=== PATIENT | female | born 1965 | race Caucasian/White ===

== ENCOUNTER 2017-06-15 18:21 | Emergency (ER) | payer MEDICAID ==
[2012-09-25 14:37] VITALS: BMI 20.1
[2017-06-15 18:45] LABS: BASOPHILS 0.3 % (0-2); EOSINOPHILS 3.3 % (0-7); HEMATOCRIT 39.5 % (36.0-48.0); HEMOGLOBIN 12.4 g/dL (12-16); IMMATURE GRANULOCYTES 0.1 % (0-5); LYMPHOCYTES 34.8 % (15-50); MCH 25.9 pg (26.0-34.0); MCHC 31.4 g/dL (31.0-37.0); MCV 82.6 fL (80.0-100.0); MONOCYTES 10.4 % (2-11); NEUTROPHILS 51.1 % (40-80); PLATELET COUNT 244 10x3/uL (130-400); RBC 4.78 10x6/uL (4.00-5.40); RDW 14.7 % (11.5-14.5); WBC 6.7 10x3/uL (4.8-10.8)
[2017-06-15 19:01] LABS: ALBUMIN 3.7 g/dL (3.4-5.0); ALKALINE PHOSPHATASE 191 U/L (46-116); ALT (SGPT) 57 U/L (10-68); BILIRUBIN - TOTAL 0.26 mg/dL (0.2-1.3); CALC OSMOLALITY 282 mosm/kg (275-300); CALCIUM 9.3 mg/dL (8.5-10.1); CARBON DIOXIDE 30.5 mmol/L (21.0-32.0); CHLORIDE - SERUM 104 mmol/L (98-107); CREATININE - SERUM 0.8 mg/dL (0.6-1.3); GLUCOSE 104 mg/dL (74-106); POTASSIUM - SERUM 3.9 mmol/L (3.5-5.1); PROTEIN - SERUM 7.8 g/dL (6.4-8.2); SODIUM 142 mmol/L (136-145); UREA NITROGEN 12 mg/dL (7-18); eGFR NON AFRICAN AMERICAN 79 mL/min (90-120)
== END 2017-06-15 20:46 | disposition home or self-care (01) ==
LOC: D.ER 18:21
PROVIDERS: Emergency Medicine
DX: T43.222A Poisoning by selective serotonin reuptake inhibitors, intentional self-harm, initial encounter (principal); T39.312A Poisoning by propionic acid derivatives, intentional self-harm, initial encounter; Y92.019 Unspecified place in single-family (private) house as the place of occurrence of the external cause; F33.9 Major depressive disorder, recurrent, unspecified

== ENCOUNTER 2018-04-13 19:00 | Outpatient (CLI) | payer OTHER ==
[2012-09-25 14:37] VITALS: BMI 20.1
== END 2018-04-13 23:59 | disposition home or self-care (01) ==
LOC: D.MAMMO 19:00
DX: Z12.31 Encounter for screening mammogram for malignant neoplasm of breast (principal)

== ENCOUNTER → 2018-07-04 13:29 | Outpatient (CLI) | payer OTHER ==
[2012-09-25 14:37] VITALS: BMI 20.1
== END | disposition home or self-care (01) ==
LOC: D.MRI 11:30
DX: M54.16 Radiculopathy, lumbar region (principal)

== ENCOUNTER 2018-08-10 06:30 | Day surgery (SDC) | payer OTHER ==
[2018-08-09 10:25] LABS: HEMATOCRIT 37.3 % (36.0-48.0); HEMOGLOBIN 11.4 g/dL (12-16); MCH 25.7 pg (26.0-34.0); MCHC 30.6 g/dL (31.0-37.0); RBC 4.44 10x6/uL (4.00-5.40); RDW 16.2 % (11.5-14.5); WBC 5.4 10x3/uL (4.8-10.8)
[~2018-08-10] VITALS: Ht 157.5 cm; Wt 68.2 kg
[~2018-08-10 06:30] MED LIST: BACLOFEN10 MG PO; BUPROPION HCL100 MG PO; EFFEXOR37.5 MG PO; MOBIC7.5 MG PO; NEURONTIN 300300 MG PO; NORCO 10-325 TA1 TAB PO; Omeprazole Dr 20 Mg; ZOFRAN4 MG PO
[2018-08-10 08:41] VITALS: BP 141/81; Ht 157.5 cm; Wt 68.2 kg
[2018-08-10] MEDS ORDERED: OXYCODONE-APAP1 TAB PO (11:22)
[2018-08-10] MEDS ORDERED: DURICEF500 MG PO (11:23)
--- NOTE | 2018-08-10 11:45 | NUR ---
PT AWAKENING, OPA REMOVED
--- NOTE | 2018-08-10 16:44 | OP ---
PATIENT NAME: GEETA IVERSON MEDICAL RECORD: [id number] :61 LOCATION:D.OPS ADMISSION DATE: SURGEON: KYMBERLY MCNEAL DO DATE OF OPERATION: 08/10/2018 PROCEDURE PERFORMED: Right endoscopic carpal tunnel release. PREOPERATIVE DIAGNOSIS: Right carpal tunnel syndrome. POSTOPERATIVE DIAGNOSIS: Right carpal tunnel syndrome. INDICATIONS: Ms. Iverson is a 53-year-old female, who presented to my office complaining of right hand numbness and tingling that would wake her up at night and when she is driving. She is tired of dealing with it. Had nerve conduction study that demonstrated carpal tunnel syndrome, median nerve compression. The patient was aware of the risks and benefits of having the procedure done, is tired of dealing with the pain and wanted it done. She is aware of the risks of infection, bleeding, damage to the median nerve, all the other nerves and vessels and signed the consent. SURGEON: Kymberly Mcneal DO DESCRIPTION OF PROCEDURE: The patient was taken to the operating suite and laid in supine position. Given general anesthetic, 2 grams of Ancef preoperatively. The right upper extremity was prepped and draped in sterile fashion. A time-out was performed. Everyone was in agreement with the correct side, site, patient, and procedure. Incision was then marked out over the palmaris longus tendon at the proximal wrist crease. The Esmarch was used to exsanguinate the right upper extremity. The tourniquet was inflated to 250 mmHg and was up for 8 minutes. Once tourniquet was inflated, the incision began with a 15 blade scalpel just through the skin and then blunt dissection was made with Ragnell down to the carpal tunnel itself. The fascia in the forearm covering the median nerve was then released from distal to proximal and then the carpal tunnel itself was entered with the dilators. Then, the sheath was entered into the carpal tunnel protecting the median nerve and the camera was entered viewing the transcarpal ligament. This was probed and rasped ensuring nothing was in the ligament. The blade was brought in and divided the transverse carpal ligament, had a good release of it and fat had herniated down into the carpal tunnel. This was all removed and then a Ragnell was used to hold the skin and the scissors were brought in to ensure there was complete release. There were no fibers of the transverse carpal ligament intact and there were not. This was done under loupe magnification. The tourniquet was then let down and 0.5% Marcaine with epinephrine was injected 10 mL around the site. The site was closed with 5-0 Monocryl in an inverted interrupted fashion. Steri-Strip was placed on the wound, Adaptic, 4 x 4's, Kerlix, and then Coban was lightly wrapped around the hand and wrist. The patient was awakened and taken to recovery in stable condition. ESTIMATED BLOOD LOSS: Minimal. COMPLICATIONS: None. TOURNIQUET TIME: 8 minutes. TRANSINT:[id number] Voice Confirmation ID: [id number] DOCUMENT ID: [id number] OPERATIVE REPORT [id number] GEETA IVERSON,KYMBERLY Santiago DO at 1644 CC: [id number] DICTATION DATE: 08/10/18 1127 [place]: 08/10/18 1327 [facility] 08/10/18 [facility] [address] [place] [address]
== END 2018-08-10 13:30 | disposition home or self-care (01) ==
LOC: D.OPS 06:30 → D.PAN 08:45 → D.OPS 09:30 → D.PAN 09:30 → D.OPS 12:45
PROVIDERS: Anesthesiology
DX: G56.01 Carpal tunnel syndrome, right upper limb (principal)

== ENCOUNTER 2018-09-27 05:10 | Day surgery (SDC) | payer OTHER ==
[~2018-09-27] VITALS: Ht 157.5 cm; Wt 68.5 kg
--- NOTE | ~2018-09-27 | OP ---
PATIENT NAME: GEETA RYAN MEDICAL RECORD: [id number] :61 LOCATION:D.OPS ADMISSION DATE: SURGEON: KIRK COLINDRES MD DATE OF OPERATION: 09/27/2018 PREOPERATIVE DIAGNOSIS: Lumbar spinal stenosis and foraminal stenosis L4-L5, left. POSTOPERATIVE DIAGNOSIS: Lumbar spinal stenosis and foraminal stenosis L4-L5, left. PROCEDURE: Lumbar laminotomy, medial facetectomy and foraminotomy L4-L5 left with METRx retractor. DESCRIPTION OF TECHNIQUE: After induction of general endotracheal anesthesia, the patient was rolled prone on a Lupillo frame. Lumbar spine was prepped and draped in usual sterile fashion. Fluoroscopic x-ray and spinal needle localized the L4-L5 interspace on the left side. After infiltration of 1:100,000 epinephrine and 1% lidocaine, a stab incision was created with a #11 blade. Series of dilators was used to advance the METRx retractor to the L4-L5 interspace on the left side. Level was confirmed with fluoroscopic x-ray. A microscope and Midas-Raf drill were used performed a laminotomy, medial facetectomy and foraminotomy at L4-L5 on the left. Hypertrophied ligamentum flavum was removed with Cloward rongeurs. Following this, the L4 and L5 nerve roots were decompressed well on the left side. Meticulous hemostasis was maintained throughout. The wound was irrigated with copious amounts of Ancef irrigant solution. The METRx retractor was removed. The fascia was closed with 2-0 Vicryl suture. Subdermal layer was closed with 3-0 Vicryl suture. The skin was closed with laurie. A sterile dressing was applied to the wound. The patient was awakened in good condition and taken to recovery. All counts were reported as correct. Estimated blood loss was minimal. TRANSINT:[id number] Voice Confirmation ID: [id number] DOCUMENT ID: [id number] KIRK COLINDRES MD CC: [id number] DICTATION DATE: 09/29/18 1041 PUBLIC SAFETY TELECOMMUNICATOR: 09/29/18 1205 [facility] 09/27/18 [place] [address]
[~2018-09-27 05:10] MED LIST changes: +DURICEF500 MG PO; +OXYCODONE-APAP1 TAB PO
[2018-09-27 05:29] LABS: HEMATOCRIT 38.4 % (36.0-48.0); HEMOGLOBIN 12.2 g/dL (12-16); MCH 26.6 pg (26.0-34.0); MCHC 31.8 g/dL (31.0-37.0); MCV 83.7 fL (80.0-100.0); MEAN PLATELET VOLUME 8.9 fL (7.4-10.4); RBC 4.59 10x6/uL (4.00-5.40); RDW 15.6 % (11.5-14.5); WBC 5.6 10x3/uL (4.8-10.8)
[2018-09-27 06:01] LABS: APTT 25.7 SECONDS (22.8-39.4); INR 1.01 (0.85-1.17); PROTIME 12.8 SECONDS (11.6-15.0)
[2018-09-27 06:02] LABS: ALBUMIN 3.6 g/dL (3.4-5.0); ANION GAP 14.7 mmol/L (8-16); BILIRUBIN - TOTAL 0.2 mg/dL (0.2-1.3); CALCIUM 8.6 mg/dL (8.5-10.1); CARBON DIOXIDE 26.5 mmol/L (21.0-32.0); CREATININE - SERUM 0.9 mg/dL (0.6-1.3); POTASSIUM - SERUM 4.2 mmol/L (3.5-5.1); PROTEIN - SERUM 7.4 g/dL (6.4-8.2)
[2018-09-27 06:44] VITALS: BP 121/64; Ht 157.5 cm; Wt 68.5 kg
[2018-09-27] MEDS ORDERED: HYDROCODON-ACE1 EA10 PO (13:13)
--- NOTE | 2018-09-27 13:20 | NUR ---
DISCHARGE INSTRUCTIONS REVIEWED WITH PATIENT AND FAMILY, DISCHARGED HOME VIA WHEELCHAIR TO PRIVATE VEHICLE WITH FAMILY
== END 2018-09-27 13:20 | disposition home or self-care (01) ==
LOC: D.OPS 05:10 → D.PAN 09:00 → D.OPS 09:00
PROVIDERS: Anesthesiology; ATTEND Neurological Surgery
DX: M48.061 Spinal stenosis, lumbar region without neurogenic claudication (principal); Z01.812 Encounter for preprocedural laboratory examination

== ENCOUNTER 2019-05-03 20:19 | Outpatient (CLI) | payer OTHER ==
[2018-09-27 06:44] VITALS: BMI 27.7
[~2019-05-03 20:19] MED LIST changes: +HYDROCODON-ACE1 EA10 PO
== END 2019-05-03 23:59 | disposition home or self-care (01) ==
LOC: D.MAMMO 20:19
PROVIDERS: ATTEND Family Medicine
DX: Z12.31 Encounter for screening mammogram for malignant neoplasm of breast (principal)